=== PATIENT | female | born 1975 | race Two or more races ===

== ENCOUNTER → 2017-02-11 | Outpatient (CLI) | payer SELFPAY | LOC: RAD 14:13 | PROVIDERS: ATTEND Nurse Practitioner Women's Health | DX: Z34.82 Encounter for supervision of other normal pregnancy, second trimester (principal) | CPT/HCPCS: 76801 ==

== ENCOUNTER → 2017-03-21 | Outpatient (CLI) | payer SELFPAY | LOC: RAD 14:39 | PROVIDERS: ATTEND Nurse Practitioner Women's Health | DX: Z34.82 Encounter for supervision of other normal pregnancy, second trimester (principal) | CPT/HCPCS: 76805 ==